=== PATIENT | male | born 1960 | race Caucasian/White ===

== ENCOUNTER 2017-03-30 10:08 | Emergency (ER) | payer SELFPAY ==
[2017-03-30] MEDS ORDERED: LIDOCAINE 1%/EPINEPHRINE INJ 20 ML VIAL INJ ONE ×2 (10:24→10:39)
--- NOTE | 2017-03-30 10:26 | ER Document Report ---
ED Medical Screen (RME) - General Information source: Patient TRAVEL OUTSIDE OF THE [place] IN LAST 30 DAYS: No - HPI Patient complains to provider of: head trauma Onset: Just prior to arrival - pt was on 2-ft. ladder when he fell backwards and hit back of head -- denies LOC but is on ASA qd. Tet- UTD - General Chief Complaint: Fall Injury Stated Complaint: FALL/HEAD INJURY Time Seen by Provider: 03/30/17 10:24 - Related Data Allergies/Adverse Reactions: No Known Allergies Allergy (Unverified 03/30/17 10:13) Past Medical History - Social History Chew tobacco use (# tins/day): No Frequency of alcohol use: Occasional Drug Abuse: None - Past Medical History Cardiac Medical History: Reports: Hx Hypertension Renal/ Medical History: Denies: Hx Peritoneal Dialysis Surgical Hx: Negative - Immunizations Hx Diphtheria, Pertussis, Tetanus Vaccination: Yes - 2015 Doctor's Discharge - Discharge Clinical Impression: Elevated blood pressure reading Scalp laceration Qualifiers: Encounter type: initial encounter Qualified Code(s): S01.01XA - Laceration without foreign body of scalp, initial encounter Condition: Stable Disposition: HOME, SELF-CARE Instructions: Antibiotic Ointment Protection ([facility]), Laceration Care ([facility]), Oral Narcotic Medication ([facility]), Prophylactic Antibiotic ([facility]), Soap Cleansing ( [facility]) Additional Instructions: Do not shower or bathe for 24 hours. After 24 hours you may shower but no submersion of the wound under water. Keep the original dressing on the wound for 24 hours unless the drainage soaks through. Change the dressing daily thereafter and keep the zachary clean from any dried discharge/scabbing. You may leave the wound open to the air once there is no more discharge. Monitor for any signs of worsening pain or redness, purulent drainage, streaks, and/or fever. Return to the ED if noticing any of the above symptoms or as needed. Take medications as directed. Your zachary will need to be removed in about 10+ /- days. Monitor BP twice daily and keep a log Formal blood pressure check with medical facility tomorrow Take medication as directed Avoid foods high in sodium Blood pressure that high puts you at risk for stroke, heart attack, end-organ damage that can ultimately lead to . Call your PCM (Dr. Weiss) today/tomorrow to get a f/u appointment* If any acute changes in health return to the ED: Return to the ED with any worsening symptoms and/or development of fever, headache, changes in speech/vision/hearing/mentation/balance, dizziness, chest pain, palpitations, syncope, shortness of breath, trouble breathing, abdominal pain, n/v/d, blood in stool/urine, loss of control of bowel/bladder, urinary retention, muscle weakness/paralysis, numbness/tingling, or other worsening symptoms that are concerning to you. Prescriptions: Cephalexin Monohydrate [Keflex 500 mg Capsule] 500 mg PO BID #10 capsule Hydrocodone/Acetaminophen [[place] 5-325 mg Tablet] 1 tab PO BID PRN #6 tablet PRN Reason: Forms: Elevated Blood Pressure, Smoking Cessation Education Referrals: RAJESH WEISS MD [Primary Care Provider] - Follow up tomorrow (for HTN and wound recheck Staple removal in 10 +/- days)
[2017-03-30] MEDS ORDERED: LIDOCAINE 4%/TETRACAINE 0.5%/EPI 0.18% 5 ML TOPICAL SOLN TOP ONE (10:41)
--- NOTE | 2017-03-30 10:52 | RADIOLOGY REPORT (SQ) ---
EXAM DESCRIPTION: CT HEAD WITHOUT COMPLETED DATE/TIME: 03/30/2017 10:41 am REASON FOR STUDY: fall/head trauma COMPARISON: None. TECHNIQUE: Axial images acquired through the brain without intravenous contrast. Images reviewed wi th bone, brain and subdural windows. Images stored on PACS. All CT scanners at this facility use dose modulation, iterative reconstruction, and/or weight based d osing when appropriate to reduce radiation dose to as low as reasonably achievable (ALARA). [facility]: Dose Right [facility]: CareDose [facility]: Dose Right [facility]: Teradose 4D [facility]: [employer] RADIATION DOSE: Up-to-date CT equipment and radiation dose reduction techniques were employed. CTDIv ol: 64.6 mGy. DLP: 1163 mGy-cm. mGy. LIMITATIONS: None. FINDINGS: VENTRICLES: Normal size and contour. CEREBRUM: No masses. No hemorrhage. No midline shift. Mild bifrontal and biparietal chronic small vessel ischemic change. No evidence for acute infarction. CEREBELLUM: No masses. No hemorrhage. No alteration of density. No evidence for acute infarction. EXTRAAXIAL SPACES: No fluid collections. No masses. ORBITS AND GLOBE: No intra- or extraconal masses. Normal contour of globe without masses. CALVARIUM: No fracture. PARANASAL SINUSES: There is mucous membrane thickening in the bilateral maxillary and ethmoid sinuses . Mucous membrane thickening right fronto ethmoid junction. Remote prior facial injury with mildly depressed right frontal bone fracture axial image 15, and a microplate and screws along the inferior right orbital rim. Microplate and screws left mandible. SOFT TISSUES: Right parietal scalp laceration with air bubbles axial bone window image 27. No underl joy skull fracture. OTHER: No other significant finding. IMPRESSION: Right parietal scalp hematoma and small laceration. No underlying skull fracture or acu te intracranial changes. TECHNICAL DOCUMENTATION: JOB ID: [id number] Quality ID # [id number]: Final reports with documentation of one or more dose reduction techniques (e.g., Au tomated exposure control, adjustment of the mA and/or kV according to patient size, use of iterative reconstruction technique) 2010 [employer]- All Rights Reserved
--- NOTE | 2017-03-30 11:00 | ER Document Report ---
HPI - HPI Pain Level: 2 Notes: Patient is a 56-year-old male presents the ED complaining of a laceration to his head status post fall off a 2 foot step ladder this morning. Patient states that the step ladder came out from under his feet and he fell back and hit a metal table. Patient states that he has a little soreness to the laceration site other than that is feeling good. Patient states that he does take aspirin daily, but no other blood thinners. Patient states that he is still able to move his head and neck around without any issues. The pain does not radiate. Patient states that he has not noticed any acute changes otherwise. Denies any fever, headache, dizziness, tinnitus, changes in hearing/ vision/mentation/speech, dysphagia, chest pain, palpitations, syncope, cough, wheeze, shortness of breath, dyspnea on exertion, abdominal pain, nausea/ vomiting/diarrhea, loss of control of bowel or bladder, urinary retention, dysuria, hematuria, back pain, numbness/tingling, muscle paralysis/weakness, balance issues, or rash. Tetanus reported to be up-to-date. Patient does smoke but denies any IV drug use. Pt has a h/o HTN and states his BP has been 200/100 +/- normally for a long time despite being on a ?BP med. Denies any other significant past medical history. No recent sick contacts or travel. - ROS Notes: REVIEW OF SYSTEMS: CONSTITUTIONAL : Denies fever, chills, or sweats. Denies recent illness. EENT: Denies eye, ear, throat, or mouth pain or symptoms. Denies nasal or sinus congestion or discharge. Denies throat, tongue, or mouth swelling or difficulty swallowing. CARDIOVASCULAR: Denies chest pain. Denies palpitations or racing or irregular heart beat. Denies ankle edema. RESPIRATORY: Denies cough, cold, or chest congestion. Denies shortness of breath, difficulty breathing, or wheezing. GASTROINTESTINAL: Denies abdominal pain or distention. Denies nausea, vomiting , or diarrhea. Denies blood in vomitus, stools, or per rectum. Denies black, tarry stools. Denies constipation. GENITOURINARY: Denies difficulty urinating, painful urination, burning, frequency, blood in urine, or discharge. MUSCULOSKELETAL: Denies back or neck pain or stiffness. Denies joint pain or swelling. SKIN: see hpi NEUROLOGICAL: Denies confusion or altered mental status. Denies passing out or loss of consciousness. Denies dizziness or lightheadedness. Denies headache. Denies weakness or paralysis or loss of use of either side. Denies problems with gait or speech. Denies sensory loss, numbness, or tingling. Denies seizures. PSYCHIATRIC: Denies anxiety or stress. Denies depression, suicidal ideation, or homicidal ideation. ALL OTHER SYSTEMS REVIEWED AND NEGATIVE. Dictation was performed using [employer] voice recognition software - CARDIOVASCULAR Cardiovascular: DENIES: Chest pain - DERM Skin Color: Normal Past Medical History - General Information source: Patient - Social History Smoking Status: Current Every Day Smoker Chew tobacco use (# tins/day): No Frequency of alcohol use: Occasional Drug Abuse: None Family History: Reviewed & Not Pertinent - Past Medical History Cardiac Medical History: Reports: Hx Hypertension Renal/ Medical History: Denies: Hx Peritoneal Dialysis Surgical Hx: Negative - Immunizations Hx Diphtheria, Pertussis, Tetanus Vaccination: Yes - 2016 Vertical Provider Document - CONSTITUTIONAL Agree With Documented VS: Yes Notes: PHYSICAL EXAMINATION: GENERAL: Well-appearing, well-nourished and in no acute distress. HEAD: a 7cm laceration, clean, noted to the posterosuperior scalp. Min. bleeding. No bony tenderness or deformity/step-offs noted. No coronado sign. + mild tenderness to the lac site itself. EYES: Pupils equal round and reactive to light, extraocular movements intact, sclera anicteric, conjunctiva are normal. No raccoon eyes. ENT: EAC clear b/l. TM's intact b/l without erythema, fluid, or perforation. Nares patent and without discharge. oropharynx clear without exudates. No tonsilar hypertrophy or erythema. Moist mucous membranes. No sinus tenderness. No hemotympanum/CSF discharge NECK: Normal range of motion, supple without lymphadenopathy. no rigidity or midline/paraspinal tenderness. Spurling negative. LUNGS: Breath sounds clear to auscultation bilaterally and equal. No wheezes rales or rhonchi. HEART: Regular rate and rhythm without murmurs, rubs, gallops. ABDOMEN: Soft, nontender, nondistended abdomen. No guarding, no rebound. No masses appreciated. Normal bowel sounds present. No CVA tenderness bilaterally. Musculoskeletal: Extremities B/L: FROM to passive/active. Strength 5+/5. Extremities: No cyanosis, clubbing, or edema b/l. Peripheral pulses 2+. Capillary refill less than 3 seconds. NEUROLOGICAL: MMSE intact. Cranial nerves grossly intact. Normal speech, normal gait. Normal sensory, motor exams. Reflexes 2+ bilaterally. DOROTHY's intact. Pronator drift negative. Romberg negative. PSYCH: Normal mood, normal affect. SKIN: Laceration to scalp as noted in head exam. - INFECTION CONTROL TRAVEL OUTSIDE OF THE [place] IN LAST 30 DAYS: No - RESPIRATORY O2 Sat by Pulse Oximetry: 96 Course - Re-evaluation Re-evalutation: 03/30/17 12:40 Patient is an afebrile, well-hydrated, 56-year-old male presents the ED with a head laceration status post fall, and elevated bp. Wound thoroughly cleaned and irrigated. 6 zachary were placed without complication after L.E.T. applied. Wound dressing placed with bacitracin thereafter. Catapres 0.2mg given PO due to elevated BP (2nd check was 240/130) per Dr. Alexandre. BP did not improve very much with a recheck 50mins later 230/130. Reviewed case with Dr. Alexandre who recommends higher level care at [facility] for further evaluation and treatment of Hypertensive Urgency. CT of the head was unremarkable for any acute pathology aside from the laceration and superficial scalp hematoma. Low suspicion for any acute glaucoma, temporal arteritis, meningitis, intracranial hemorrhage, ischemic stroke, or fracture. Reviewed with the patient that symptoms can change after initial presentation and he needs to monitor for any neurological changes. I will send him home with a prophylactic antibiotic due to the metal table, Keflex 5 mg p.o. twice daily 5 days along with a few tablets of [place] for pain control. Sent to [facility] for further evaluation and treatment. - Vital Signs Vital signs: Temp Pulse Resp BP Pulse Ox 98.5 F 77 18 219/123 H 96 03/30/17 10:03/30/17 10:03/30/17 10:03/30/17 10:03/30/17 10:09 Procedures - Laceration/Wound Repair Right Head Time completed: 11:45 Wound length (cm): 7.5 Wound's Depth, Shape: Superficial. No: Into muscle, Irregular Laceration pre-procedure: Sterile PPE donned, Sterile drapes applied, Shur- Clens applied Anesthetic type: Other - L.E.T. utilized Volume Anesthetic (mLs): 4 - L. E. T. Wound explored: Clean Irrigated w/ Saline (mLs): 100 Wound Debrided: Minimal Wound Repaired With: [place] Number of Sutures: 6 Post-procedure wound care: Sterile dressing applied Post-procedure NV exam normal: Yes Complications: No Discharge - Discharge Clinical Impression: Elevated blood pressure reading Scalp laceration Qualifiers: Encounter type: initial encounter Qualified Code(s): S01.01XA - Laceration without foreign body of scalp, initial encounter Instructions: Antibiotic Ointment Protection ([facility]), Laceration Care ([facility]), Prophylactic Antibiotic ([facility]), Soap Cleansing ([facility]), Oral Narcotic Medication ( [facility]) Additional Instructions: Do not shower or bathe for 24 hours. After 24 hours you may shower but no submersion of the wound under water. Keep the original dressing on the wound for 24 hours unless the drainage soaks through. Change the dressing daily thereafter and keep the zachary clean from any dried discharge/scabbing. You may leave the wound open to the air once there is no more discharge. Return to the ED and/or your PCM in 2-3 days for a recheck. Monitor for any signs of worsening pain or redness, purulent drainage, streaks, and/or fever. Return to the ED if noticing any of the above symptoms or as needed. Take medications as directed. Your zachary will need to be removed in about 10+/- days. Return to the ED with any worsening symptoms and/or development of fever, headache, changes in speech/vision/hearing/mentation/balance, dizziness, chest pain, palpitations, syncope, shortness of breath, trouble breathing, abdominal pain, n/v/d, blood in stool/urine, loss of control of bowel/bladder, urinary retention, muscle weakness/paralysis, numbness/tingling, or other worsening symptoms that are concerning to you. Prescriptions: Cephalexin Monohydrate [Keflex 500 mg Capsule] 500 mg PO BID #10 capsule Hydrocodone/Acetaminophen [[place] 5-325 mg Tablet] 1 tab PO BID PRN #6 tablet PRN Reason: Forms: Elevated Blood Pressure, Smoking Cessation Education Referrals: RAJESH WEISS MD [Primary Care Provider] - Follow up in 3-5 days (for HTN and wound recheck Staple removal in 10 +/- days)
[2017-03-30] MEDS ORDERED: CLONIDINE HCL 0.2 MG TABLET PO ONE (11:19)
[2017-03-30 13:13] VITALS: BP 171/100
== END 2017-03-30 13:35 | disposition home or self-care (01) ==
LOC: ER 10:08
PROC: 0HQ0XZZ Repair Scalp Skin, External Approach (ICD-10-PCS; principal; 2017-03-30)
DX: S01.01XA Laceration without foreign body of scalp, initial encounter (principal); I10 Essential (primary) hypertension; F17.200 Nicotine dependence, unspecified, uncomplicated; W17.89XA Other fall from one level to another, initial encounter; Z79.82 Long term (current) use of aspirin
CPT/HCPCS: 99283; 70450; 12002; J3490